=== PATIENT | female | born 1935 | race Caucasian/White ===

== ENCOUNTER 2017-08-30 14:38 | Observation (INO) ==
[2017-08-30] MEDS ORDERED: ACETAMINOPHEN 325 MG TABLET PO PRN (14:48)
[2017-08-30] MEDS ORDERED: ONDANSETRON 4 MG/2 ML VIAL IV PRN (14:48)
[2017-08-30] MEDS ORDERED: DOCUSATE SODIUM 100 MG CAPSULE PO PRN (14:48)
[2017-08-30 16:22] LABS: Basophils % 0.4 % (0.0-0.8); Eosinophils % 0.8 % (0.00-10.9); Hemoglobin 12.2 GM/DL (12.0-16.0); Immature Granulocytes % 0.2 %; Immature Granulocytes Absolute 0.01 #; Lymphocytes # 1.8 10*3/uL (1.4-4.0); Lymphocytes % 33.5 % (21.3-54.2); Mean Corpuscular Hemoglobin 32 PG (27-34); Mean Corpuscular Volume 95.6 FL (87-102); Mean Platelet Volume 9.9 FL (9.6-12.0); Monocytes # 0.5 10*3/uL (0.11-0.8); Monocytes % 9.3 % (1.7-12.7); Neutrophils % 55.8 % (38.7-73.9); Platelet Count 352 T/CUMM (130-400); Red Blood Count 3.87 MC/CUMM (3.8-5.5); Red Cell Distribution Width 11.9 % (9.3-17.3); White Blood Count 5.3 T/CUMM (4-12)
[2017-08-30 16:53] LABS: Albumin 3.5 G/DL (3.4-5.0); Bilirubin,Total 0.4 MG/DL (0.2-1.0); Calcium 9.2 MG/DL (8.5-10.1); Osmolality,Calculated 279.4 MOS/KG (273-304); Potassium 4.2 MMOL/L (3.5-5.1); Total Protein 6.7 G/DL (6.4-8.3)
[2017-08-30 16:58] LABS: Thyroid Stimulating Hormone 2.51 uIU/ml (0.358-3.74)
[2017-08-30 17:00] LABS: Apearance,Urine CLEAR (Clear); Bilirubin,Urine Negative (Negative); Blood, Urine Negative (Negative); Glucose,Urine (UA) Negative (Negative); Ketones,Urine Negative (Negative); Mucus,Urine Occasional /LPF (Occasional); Nitrite,Urine Negative (Negative); Protein,Urine Negative; RBC,Urine <1 /HPF (0-4); Squamous Epithelial Cell,Urine Occasional /HPF (0-10); Urine Color Yellow (Yellow); Urine Specific Gravity 1.008 (1.001-1.035); Urine Urobilinogen < 2.0 EU/DL (0.2-1.0); WBC,Urine 21 /HPF (0-6)
[2017-08-30] MEDS: SODIUM CHLORIDE 0.9% 1,000 ML IV SCH (17:11)
[2017-08-30] MEDS ORDERED: ENOXAPARIN 30 MG/0.3 ML SYRINGE SUBCUT SCH (21:00)
[2017-08-30] MEDS: PANTOPRAZOLE 40 MG TABLET PO SCH (21:00)
[2017-08-31] MEDS: SODIUM CHLORIDE 0.9% 1,000 ML IV SCH ×2 (04:00→13:49)
[2017-08-31 06:35] LABS: Basophils % 0.2 % (0.0-0.8); Eosinophils # 0.1 10*3/uL (0.0-0.87); Eosinophils % 1.1 % (0.00-10.9); Hematocrit 32.1 VOL% (35.7-47.0); Hemoglobin 10.7 GM/DL (12.0-16.0); Immature Granulocytes % 0.2 %; Immature Granulocytes Absolute 0.01 #; Lymphocytes # 1.5 10*3/uL (1.4-4.0); Lymphocytes % 35.1 % (21.3-54.2); Mean Corpuscular HGB Conc 33.3 GM/DL (32-36); Mean Corpuscular Hemoglobin 32 PG (27-34); Mean Corpuscular Volume 95.5 FL (87-102); Mean Platelet Volume 9.6 FL (9.6-12.0); Monocytes # 0.5 10*3/uL (0.11-0.8); Monocytes % 10.5 % (1.7-12.7); Neutrophils # 2.3 10*3/uL (1.4-7.4); Neutrophils % 52.9 % (38.7-73.9); Platelet Count 288 T/CUMM (130-400); Red Blood Count 3.36 MC/CUMM (3.8-5.5); Red Cell Distribution Width 11.8 % (9.3-17.3); White Blood Count 4.4 T/CUMM (4-12)
[2017-08-31 07:07] LABS: Albumin 3.1 G/DL (3.4-5.0); Bilirubin,Total 0.8 MG/DL (0.2-1.0); Calcium 8.5 MG/DL (8.5-10.1); Osmolality,Calculated 280.1 MOS/KG (273-304); Potassium 4.4 MMOL/L (3.5-5.1)
[2017-08-31] MEDS ORDERED: LIDOCAINE 2% 5 ML VIAL ONE (08:00)
[2017-08-31] MEDS ORDERED: PROPOFOL 200 MG/20 ML VIAL IV ONE (08:00)
[2017-08-31] MEDS ORDERED: PANTOPRAZOLE 40 MG TABLET PO SCH (09:00)
[2017-08-31] MEDS ORDERED: traMADol 50 MG TABLET PO PRN (09:13)
[2017-08-31] MEDS: PANTOPRAZOLE 40 MG TABLET PO SCH (09:29)
[2017-08-31 11:39] VITALS: BP 112/53
== END 2017-08-31 16:30 | disposition home or self-care (01) ==
LOC: N.2E
PROVIDERS: ADMIT Family Medicine; ATTEND Family Medicine

== ENCOUNTER 2017-12-15 10:02 | Observation (INO) ==
[2017-12-15 10:48] LABS: Basophils % 0.4 % (0.0-0.8); Eosinophils # 0.1 10*3/uL (0.0-0.87); Eosinophils % 1.3 % (0.00-10.9); Hemoglobin 12.5 GM/DL (12.0-16.0); Immature Granulocytes % 0.2 %; Immature Granulocytes Absolute 0.01 #; Lymphocytes # 1.5 10*3/uL (1.4-4.0); Lymphocytes % 27.3 % (21.3-54.2); Mean Corpuscular HGB Conc 32.9 GM/DL (32-36); Mean Corpuscular Hemoglobin 33 PG (27-34); Mean Corpuscular Volume 98.7 FL (87-102); Mean Platelet Volume 9.9 FL (9.6-12.0); Monocytes # 0.4 10*3/uL (0.11-0.8); Monocytes % 7.1 % (1.7-12.7); Neutrophils # 3.5 10*3/uL (1.4-7.4); Neutrophils % 63.7 % (38.7-73.9); Platelet Count 235 T/CUMM (130-400); Red Blood Count 3.85 MC/CUMM (3.8-5.5); Red Cell Distribution Width 12.2 % (9.3-17.3); White Blood Count 5.5 T/CUMM (4-12)
[2017-12-15 10:59] LABS: INR 0.9
[2017-12-15 11:08] LABS: Alanine Aminotransferase 16 U/L (13-56); Albumin 3.7 G/DL (3.4-5.0); Alkaline Phosphatase 82 U/L (45-117); Aspartate Amino Transferase 19 U/L (0-37); Bilirubin,Total < 0.39 MG/DL (0.2-1.0); Blood Urea Nitrogen 17 MG/DL (7-18); Calcium 9.1 MG/DL (8.5-10.1); Glucose 178 MG/DL (74-106); Osmolality,Calculated 278.8 MOS/KG (273-304); Potassium 4.2 MMOL/L (3.5-5.1); Sodium 137 MMOL/L (136-145); Total Protein 6.9 G/DL (6.4-8.3)
[2017-12-15] MEDS ORDERED: ACETAMINOPHEN 325 MG TABLET PO PRN (14:46)
[2017-12-15] MEDS ORDERED: ONDANSETRON 4 MG/2 ML VIAL IV PRN (14:46)
[2017-12-15] MEDS: POLYETHYLENE GLYCOL POWDER 17 GM PACK PO SCH (20:55)
[2017-12-15] MEDS: PANTOPRAZOLE 40 MG TABLET PO SCH (20:55)
[2017-12-15] MEDS ORDERED: DOCUSATE SODIUM 100 MG CAPSULE PO SCH (21:00)
[2017-12-15 22:44] LABS: Hematocrit 35.4 VOL% (35.7-47.0); Hemoglobin 11.9 GM/DL (12.0-16.0)
[2017-12-16 06:03] LABS: Basophils % 0.7 % (0.0-0.8); Eosinophils # 0.2 10*3/uL (0.0-0.87); Hematocrit 38.1 VOL% (35.7-47.0); Hemoglobin 12.5 GM/DL (12.0-16.0); Immature Granulocytes % 0.2 %; Immature Granulocytes Absolute 0.01 #; Lymphocytes # 1.6 10*3/uL (1.4-4.0); Lymphocytes % 37.1 % (21.3-54.2); Mean Corpuscular HGB Conc 32.8 GM/DL (32-36); Mean Corpuscular Hemoglobin 33 PG (27-34); Mean Corpuscular Volume 99.2 FL (87-102); Mean Platelet Volume 9.9 FL (9.6-12.0); Monocytes # 0.5 10*3/uL (0.11-0.8); Monocytes % 11.4 % (1.7-12.7); Neutrophils % 46.6 % (38.7-73.9); Platelet Count 223 T/CUMM (130-400); Red Blood Count 3.84 MC/CUMM (3.8-5.5); White Blood Count 4.2 T/CUMM (4-12)
[2017-12-16] MEDS ORDERED: PANTOPRAZOLE 40 MG TABLET PO SCH (09:00)
[2017-12-16] MEDS: POLYETHYLENE GLYCOL POWDER 17 GM PACK PO SCH ×2 (10:30→15:59)
[2017-12-16] MEDS: PANTOPRAZOLE 40 MG TABLET PO SCH ×2 (10:30→20:38)
[2017-12-16] MEDS: LISINOPRIL 20 MG TABLET PO SCH (11:40)
[2017-12-16] MEDS ORDERED: TUBERCULIN SKIN TEST 0.1 ML SYRINGE INTRADERM ONE (13:14)
[2017-12-16 14:03] LABS: Hematocrit 40.3 VOL% (35.7-47.0)
[2017-12-16] MEDS ORDERED: ESCITALOPRAM 10 MG TABLET PO SCH (21:00)
[2017-12-16] MEDS ORDERED: DONEPEZIL 5 MG TABLET PO SCH ×2 (21:00)
[2017-12-17 05:25] LABS: Basophils % 0.6 % (0.0-0.8); Eosinophils # 0.2 10*3/uL (0.0-0.87); Eosinophils % 4.4 % (0.00-10.9); Hematocrit 39.5 VOL% (35.7-47.0); Hemoglobin 12.9 GM/DL (12.0-16.0); Immature Granulocytes % 0.2 %; Immature Granulocytes Absolute 0.01 #; Lymphocytes # 2.1 10*3/uL (1.4-4.0); Lymphocytes % 42.9 % (21.3-54.2); Mean Corpuscular HGB Conc 32.7 GM/DL (32-36); Mean Corpuscular Hemoglobin 32 PG (27-34); Mean Corpuscular Volume 98.8 FL (87-102); Mean Platelet Volume 10.2 FL (9.6-12.0); Monocytes # 0.6 10*3/uL (0.11-0.8); Monocytes % 11.4 % (1.7-12.7); Neutrophils % 40.5 % (38.7-73.9); Platelet Count 238 T/CUMM (130-400)
[2017-12-17] MEDS ORDERED: LINACLOTIDE 145 MCG CAPSULE PO SCH (07:30)
[2017-12-17] MEDS: LISINOPRIL 20 MG TABLET PO SCH (08:44)
[2017-12-17] MEDS: PANTOPRAZOLE 40 MG TABLET PO SCH (08:47)
[2017-12-17] MEDS ORDERED: NON-FORMULARY MEDICATION (Omeprazole [Omeprazole] 40 MG) PO SCH (09:00)
[2017-12-17 13:18] VITALS: BP 146/65
== END 2017-12-17 15:15 | disposition home health service (06) ==
LOC: N.ED 10:02 → N.EDINP 10:02 → N.4E 14:39
PROVIDERS: ADMIT Family Medicine; ATTEND Family Medicine

== ENCOUNTER 2018-01-03 08:41 | Inpatient (IN) ==
[2018-01-03 09:09] LABS: Basophils % 0.4 % (0.0-0.8); Eosinophils # 0.1 10*3/uL (0.0-0.87); Eosinophils % 2.2 % (0.00-10.9); Hematocrit 35.4 VOL% (35.7-47.0); Hemoglobin 11.9 GM/DL (12.0-16.0); Immature Granulocytes % 0.2 %; Immature Granulocytes Absolute 0.01 #; Lymphocytes # 1.5 10*3/uL (1.4-4.0); Lymphocytes % 32.8 % (21.3-54.2); Mean Corpuscular HGB Conc 33.6 GM/DL (32-36); Mean Corpuscular Hemoglobin 33 PG (27-34); Mean Corpuscular Volume 97.5 FL (87-102); Mean Platelet Volume 9.6 FL (9.6-12.0); Monocytes # 0.4 10*3/uL (0.11-0.8); Monocytes % 8.4 % (1.7-12.7); Neutrophils # 2.5 10*3/uL (1.4-7.4); Platelet Count 232 T/CUMM (130-400); Red Blood Count 3.63 MC/CUMM (3.8-5.5); Red Cell Distribution Width 11.8 % (9.3-17.3); White Blood Count 4.5 T/CUMM (4-12)
[2018-01-03 09:23] LABS: Alanine Aminotransferase 16 U/L (13-56); Albumin 3.6 G/DL (3.4-5.0); Alkaline Phosphatase 72 U/L (45-117); Aspartate Amino Transferase 15 U/L (0-37); Bilirubin,Total < 0.39 MG/DL (0.2-1.0); Blood Urea Nitrogen 13 MG/DL (7-18); Calcium 8.8 MG/DL (8.5-10.1); Glucose 100 MG/DL (74-106); Osmolality,Calculated 274.7 MOS/KG (273-304); Potassium 4.3 MMOL/L (3.5-5.1); Sodium 138 MMOL/L (136-145)
[2018-01-03 09:29] LABS: PT Patient Result 10.1 SECS; Partial Thromboplastin Time 24.7 SECS (0-40)
[2018-01-03] MEDS ORDERED: ACETAMINOPHEN 325 MG TABLET PO PRN (13:44)
[2018-01-03] MEDS ORDERED: ONDANSETRON 4 MG/2 ML VIAL IV PRN (13:44)
[2018-01-03] MEDS: SODIUM CHLORIDE 0.9% 1,000 ML IV SCH (15:06)
[2018-01-03] MEDS: ESCITALOPRAM 10 MG TABLET PO SCH (21:31)
[2018-01-03] MEDS: DONEPEZIL 5 MG TABLET PO SCH (21:31)
[2018-01-03] MEDS: DOCUSATE SODIUM 100 MG CAPSULE PO SCH (21:31)
[2018-01-04] MEDS: SODIUM CHLORIDE 0.9% 1,000 ML IV SCH ×3 (01:15→22:58)
[2018-01-04] MEDS ORDERED: NON-FORMULARY MEDICATION (Linaclotide [Linzess] 72 MCG) PO SCH (07:30)
[2018-01-04] MEDS: PANTOPRAZOLE 40 MG TABLET PO SCH (08:58)
[2018-01-04] MEDS: DOCUSATE SODIUM 100 MG CAPSULE PO SCH ×2 (08:58→21:03)
[2018-01-04] MEDS: LISINOPRIL 20 MG TABLET PO SCH (08:58)
[2018-01-04] MEDS ORDERED: PANTOPRAZOLE 40 MG TABLET PO SCH (09:00)
[2018-01-04] MEDS: ESCITALOPRAM 10 MG TABLET PO SCH (21:03)
[2018-01-04] MEDS: DONEPEZIL 5 MG TABLET PO SCH (21:03)
[2018-01-05] MEDS: SODIUM CHLORIDE 0.9% 1,000 ML IV SCH ×2 (04:47→23:06)
[2018-01-05] MEDS: PANTOPRAZOLE 40 MG TABLET PO SCH (09:15)
[2018-01-05] MEDS: LISINOPRIL 20 MG TABLET PO SCH (09:15)
[2018-01-05] MEDS: DOCUSATE SODIUM 100 MG CAPSULE PO SCH ×2 (09:15→21:39)
[2018-01-05] MEDS ORDERED: LORazepam 2 MG/1 ML VIAL IV PRN (18:35)
[2018-01-05] MEDS: ESCITALOPRAM 10 MG TABLET PO SCH (21:39)
[2018-01-05] MEDS: DONEPEZIL 5 MG TABLET PO SCH (21:39)
[2018-01-06] MEDS: SODIUM CHLORIDE 0.9% 1,000 ML IV SCH (04:16)
[2018-01-06 08:01] VITALS: BP 143/73
[2018-01-06 08:49] LABS: Apearance,Urine CLEAR (Clear); Bilirubin,Urine Negative (Negative); Blood, Urine Negative (Negative); Glucose,Urine (UA) Negative (Negative); Hyaline Casts,Urine 2 /LPF (0-3); Ketones,Urine Negative (Negative); Mucus,Urine Occasional /LPF (Occasional); Nitrite,Urine Negative (Negative); Protein,Urine Negative; RBC,Urine 1 /HPF (0-4); Urine Color Straw (Yellow); Urine Specific Gravity 1.008 (1.001-1.035); Urine Urobilinogen < 2.0 EU/DL (0.2-1.0); WBC,Urine 2 /HPF (0-6)
[2018-01-06] MEDS: LISINOPRIL 20 MG TABLET PO SCH (09:31)
[2018-01-06] MEDS: DOCUSATE SODIUM 100 MG CAPSULE PO SCH (09:31)
[2018-01-06] MEDS: PANTOPRAZOLE 40 MG TABLET PO SCH (09:31)
== END 2018-01-06 10:56 | DRG 392 ==
LOC: N.ED 08:41 → N.EDINP 13:53 → N.2E 14:30
PROVIDERS: ADMIT Family Medicine; ATTEND Family Medicine

== ENCOUNTER 2019-03-03 09:47 | Inpatient (IN) ==
[2019-03-03] MEDS ORDERED: SODIUM CHLORIDE 0.9% 500 ML IV STA (10:12)
[2019-03-03 10:38] LABS: Basophils % 0.2 % (0.0-0.8); Eosinophils % 0.3 % (0.00-10.9); Hematocrit 31.1 VOL% (35.7-47.0); Hemoglobin 9.9 GM/DL (12.0-16.0); Immature Granulocytes % 0.5 %; Immature Granulocytes Absolute 0.05 #; Lymphocytes # 1.2 10*3/uL (1.4-4.0); Lymphocytes % 12.2 % (21.3-54.2); Mean Corpuscular HGB Conc 31.8 GM/DL (32-36); Mean Corpuscular Volume 98.1 FL (87-102); Mean Platelet Volume 9.4 FL (9.6-12.0); Monocytes % 9.3 % (1.7-12.7); Neutrophils % 77.5 % (38.7-73.9); Platelet Count 263 T/CUMM (130-400); Red Blood Count 3.17 MC/CUMM (3.8-5.5); Red Cell Distribution Width 12.2 % (9.3-17.3); White Blood Count 9.6 T/CUMM (4-12)
[2019-03-03 10:44] LABS: Amorphous Crystals,Urine Occasional /HPF (Few); Apearance,Urine CLEAR (Clear); Bilirubin,Urine Negative (Negative); Blood, Urine Negative (Negative); Glucose,Urine (UA) Negative (Negative); Ketones,Urine Negative (Negative); Mucus,Urine Occasional /LPF (Occasional); Nitrite,Urine Negative (Negative); Protein,Urine Negative; RBC,Urine <1 /HPF (0-4); Urine Color Yellow (Yellow); Urine Specific Gravity 1.021 (1.001-1.035); Urine Urobilinogen < 2.0 EU/DL (0.2-1.0); WBC,Urine <1 /HPF (0-6)
[2019-03-03 10:48] LABS: PT Patient Result 10.7 SECS; Partial Thromboplastin Time 28.4 SECS (0-40)
[2019-03-03 11:00] LABS: Alanine Aminotransferase 11 U/L (13-56); Albumin 2.4 G/DL (3.4-5.0); Alkaline Phosphatase 73 U/L (45-117); Aspartate Amino Transferase 17 U/L (0-37); Blood Urea Nitrogen 21 MG/DL (7-18); Calcium 8.6 MG/DL (8.5-10.1); Glucose 118 MG/DL (74-106); Osmolality,Calculated 280.5 MOS/KG (273-304); Total Protein 5.8 G/DL (6.4-8.3); Troponin I < 0.015 NG/ML (0.00-0.045)
[2019-03-03] MEDS ORDERED: ALBUTEROL/IPRATROPIUM 3 ML NEB RESP TX STA (11:22)
[2019-03-03] MEDS ORDERED: MEROPENEM 1,000 MG in SODIUM CHLORIDE 0.9% 100 ML IV STA (11:22)
[2019-03-03] MEDS ORDERED: SODIUM CHLORIDE 0.9% 100 ML IV ONE (11:55)
[2019-03-03] MEDS ORDERED: MEROPENEM 1,000 MG VIAL IV ONE (11:55)
[2019-03-03] MEDS ORDERED: ONDANSETRON 4 MG/2 ML VIAL IV PRN (12:17)
[2019-03-03] MEDS: ALBUTEROL/IPRATROPIUM 3 ML NEB RESP TX SCH ×2 (13:30→19:18)
[2019-03-03] MEDS: ZALEPLON 5 MG CAPSULE PO SCH (20:48)
[2019-03-03] MEDS: LORazepam 0.5 MG TABLET PO SCH (20:48)
[2019-03-03] MEDS: DONEPEZIL 10 MG TABLET PO SCH (20:48)
[2019-03-03] MEDS: traZODone 50 MG TABLET PO SCH (20:49)
[2019-03-03] MEDS: MEROPENEM 1,000 MG in SODIUM CHLORIDE 0.9% 100 ML IV SCH (20:49)
[2019-03-04] MEDS: ALBUTEROL/IPRATROPIUM 3 ML NEB RESP TX SCH ×4 (00:18→20:55)
[2019-03-04] MEDS: MEROPENEM 1,000 MG in SODIUM CHLORIDE 0.9% 100 ML IV SCH ×3 (04:54→23:28)
[2019-03-04] MEDS: NON-FORMULARY MEDICATION (Linaclotide [Linzess] 72 MCG) PO SCH (09:01)
[2019-03-04] MEDS: LINZESS PO SCH (09:01)
[2019-03-04] MEDS: NON-FORMULARY MEDICATION (Dextromethorphan-Quinidine [Nuedexta] 1 CAPSULE) PO SCH (09:02)
[2019-03-04] MEDS: PANTOPRAZOLE 40 MG TABLET PO SCH (09:05)
[2019-03-04] MEDS: MULTIVITAMIN (CENTRUM) TABLET PO SCH (09:05)
[2019-03-04] MEDS: SERTRALINE 25 MG TABLET PO SCH (09:05)
[2019-03-04] MEDS: LISINOPRIL 20 MG TABLET PO SCH (09:05)
[2019-03-04] MEDS: LORazepam 0.5 MG TABLET PO SCH ×2 (09:05→22:00)
[2019-03-04] MEDS ORDERED: LORazepam 2 MG/1 ML VIAL IV ONE (10:01)
[2019-03-04] MEDS: LORazepam 2 MG/1 ML VIAL IV PRN ×2 (11:18→17:38)
[2019-03-04] MEDS ORDERED: ENOXAPARIN 40 MG/0.4 ML SYRINGE SUBCUT SCH (11:30)
[2019-03-04] MEDS: VANCOMYCIN INJ 1,000 MG in SODIUM CHLORIDE 0.9% 250 ML IV SCH (18:30)
[2019-03-04] MEDS: traZODone 50 MG TABLET PO SCH (21:59)
[2019-03-04] MEDS: ENOXAPARIN 30 MG/0.3 ML SYRINGE SUBCUT SCH (22:00)
[2019-03-04] MEDS: DONEPEZIL 10 MG TABLET PO SCH (22:00)
[2019-03-04] MEDS: ZALEPLON 5 MG CAPSULE PO SCH (22:00)
[2019-03-04] MEDS: ACETAMINOPHEN 500 MG TABLET PO PRN (23:27)
[2019-03-05] MEDS: ALBUTEROL/IPRATROPIUM 3 ML NEB RESP TX SCH ×4 (00:59→19:54)
[2019-03-05] MEDS: LORazepam 2 MG/1 ML VIAL IV PRN ×2 (02:14→21:00)
[2019-03-05] MEDS: MEROPENEM 1,000 MG in SODIUM CHLORIDE 0.9% 100 ML IV SCH ×3 (04:47→20:58)
[2019-03-05] MEDS: NON-FORMULARY MEDICATION (Linaclotide [Linzess] 72 MCG) PO SCH (08:02)
[2019-03-05] MEDS: NON-FORMULARY MEDICATION (Dextromethorphan-Quinidine [Nuedexta] 1 CAPSULE) PO SCH (08:02)
[2019-03-05] MEDS: LINZESS PO SCH (08:02)
[2019-03-05] MEDS: LORazepam 0.5 MG TABLET PO SCH ×2 (09:05→21:52)
[2019-03-05] MEDS: SERTRALINE 25 MG TABLET PO SCH (09:05)
[2019-03-05] MEDS: LISINOPRIL 20 MG TABLET PO SCH (09:05)
[2019-03-05] MEDS: MULTIVITAMIN (CENTRUM) TABLET PO SCH (09:05)
[2019-03-05] MEDS: PANTOPRAZOLE 40 MG TABLET PO SCH (09:05)
[2019-03-05] MEDS: VANCOMYCIN INJ 1,000 MG in SODIUM CHLORIDE 0.9% 250 ML IV SCH (18:09)
[2019-03-05] MEDS: DONEPEZIL 10 MG TABLET PO SCH (20:59)
[2019-03-05] MEDS: traZODone 50 MG TABLET PO SCH (20:59)
[2019-03-05] MEDS: ZALEPLON 5 MG CAPSULE PO SCH (20:59)
[2019-03-05] MEDS: ENOXAPARIN 30 MG/0.3 ML SYRINGE SUBCUT SCH (21:04)
[2019-03-06] MEDS: ALBUTEROL/IPRATROPIUM 3 ML NEB RESP TX SCH ×4 (01:13→19:40)
[2019-03-06] MEDS: MEROPENEM 1,000 MG in SODIUM CHLORIDE 0.9% 100 ML IV SCH ×2 (04:20→12:03)
[2019-03-06] MEDS: LINZESS PO SCH (10:50)
[2019-03-06] MEDS: NON-FORMULARY MEDICATION (Linaclotide [Linzess] 72 MCG) PO SCH (10:50)
[2019-03-06] MEDS: NON-FORMULARY MEDICATION (Dextromethorphan-Quinidine [Nuedexta] 1 CAPSULE) PO SCH (10:50)
[2019-03-06] MEDS: LISINOPRIL 20 MG TABLET PO SCH (10:52)
[2019-03-06] MEDS: PANTOPRAZOLE 40 MG TABLET PO SCH (10:52)
[2019-03-06] MEDS: SERTRALINE 25 MG TABLET PO SCH (10:52)
[2019-03-06] MEDS: MULTIVITAMIN (CENTRUM) TABLET PO SCH (10:52)
[2019-03-06] MEDS: LORazepam 0.5 MG TABLET PO SCH ×2 (10:52→20:07)
[2019-03-06 11:43] LABS: Basophils % 0.2 % (0.0-0.8); Eosinophils # 0.1 10*3/uL (0.0-0.87); Eosinophils % 1.2 % (0.00-10.9); Hematocrit 33.2 VOL% (35.7-47.0); Hemoglobin 10.2 GM/DL (12.0-16.0); Immature Granulocytes % 0.2 %; Immature Granulocytes Absolute 0.02 #; Lymphocytes # 0.8 10*3/uL (1.4-4.0); Lymphocytes % 10.1 % (21.3-54.2); Mean Corpuscular HGB Conc 30.7 GM/DL (32-36); Mean Corpuscular Volume 98.5 FL (87-102); Mean Platelet Volume 9.7 FL (9.6-12.0); Monocytes % 7.8 % (1.7-12.7); Neutrophils % 80.5 % (38.7-73.9); Platelet Count 301 T/CUMM (130-400); Red Blood Count 3.37 MC/CUMM (3.8-5.5)
[2019-03-06 11:51] LABS: Total Protein,Body Fluid 3.2 G/DL
[2019-03-06] MEDS: ACETAMINOPHEN 500 MG TABLET PO PRN (12:01)
[2019-03-06 12:03] LABS: Albumin 2.2 G/DL (3.4-5.0); Bilirubin,Total 0.6 MG/DL (0.2-1.0); Calcium 8.8 MG/DL (8.5-10.1); Osmolality,Calculated 274.5 MOS/KG (273-304); Total Protein 6.1 G/DL (6.4-8.3)
[2019-03-06] MEDS: CLINDAMYCIN INJ 900 MG in PREMIX 1 EACH IV SCH (17:13)
[2019-03-06] MEDS: VANCOMYCIN INJ 1,000 MG in SODIUM CHLORIDE 0.9% 250 ML IV SCH (20:02)
[2019-03-06] MEDS: ENOXAPARIN 30 MG/0.3 ML SYRINGE SUBCUT SCH (20:04)
[2019-03-06] MEDS: DONEPEZIL 10 MG TABLET PO SCH (20:07)
[2019-03-06] MEDS: ZALEPLON 5 MG CAPSULE PO SCH (20:08)
[2019-03-06] MEDS: traZODone 50 MG TABLET PO SCH (20:08)
[2019-03-06 21:10] LABS: Lymphocytes,Pleural Fluid 65 %; Monocytes,Pleural Fluid 13 %; Neutrophils,Pleural Fluid 22 %; RBC,Pleural Fluid 8679 T/CUMM
[2019-03-07] MEDS: CLINDAMYCIN INJ 900 MG in PREMIX 1 EACH IV SCH ×3 (00:11→16:26)
[2019-03-07] MEDS: ALBUTEROL/IPRATROPIUM 3 ML NEB RESP TX SCH ×4 (01:15→18:40)
[2019-03-07 04:56] LABS: Basophils % 0.4 % (0.0-0.8); Eosinophils # 0.2 10*3/uL (0.0-0.87); Eosinophils % 2.1 % (0.00-10.9); Hematocrit 30.1 VOL% (35.7-47.0); Hemoglobin 9.4 GM/DL (12.0-16.0); Immature Granulocytes % 0.1 %; Immature Granulocytes Absolute 0.01 #; Lymphocytes % 13.6 % (21.3-54.2); Mean Corpuscular HGB Conc 31.2 GM/DL (32-36); Mean Corpuscular Volume 98.4 FL (87-102); Mean Platelet Volume 9.6 FL (9.6-12.0); Monocytes % 8.5 % (1.7-12.7); Neutrophils % 75.3 % (38.7-73.9); Platelet Count 272 T/CUMM (130-400); Red Blood Count 3.06 MC/CUMM (3.8-5.5); Red Cell Distribution Width 11.9 % (9.3-17.3); White Blood Count 7.5 T/CUMM (4-12)
[2019-03-07 05:13] LABS: Calcium 8.6 MG/DL (8.5-10.1); Osmolality,Calculated 279.4 MOS/KG (273-304)
[2019-03-07] MEDS: ACETAMINOPHEN 500 MG TABLET PO PRN (08:14)
[2019-03-07] MEDS: LISINOPRIL 20 MG TABLET PO SCH (08:14)
[2019-03-07] MEDS: MULTIVITAMIN (CENTRUM) TABLET PO SCH (08:14)
[2019-03-07] MEDS: SERTRALINE 25 MG TABLET PO SCH (08:14)
[2019-03-07] MEDS: LORazepam 0.5 MG TABLET PO SCH ×2 (08:14→20:09)
[2019-03-07] MEDS: PANTOPRAZOLE 40 MG TABLET PO SCH (08:14)
[2019-03-07] MEDS: NON-FORMULARY MEDICATION (Dextromethorphan-Quinidine [Nuedexta] 1 CAPSULE) PO SCH (08:22)
[2019-03-07] MEDS: NON-FORMULARY MEDICATION (Linaclotide [Linzess] 72 MCG) PO SCH (08:22)
[2019-03-07] MEDS: LINZESS PO SCH (08:22)
[2019-03-07] MEDS: LORazepam 2 MG/1 ML VIAL IV PRN (16:31)
[2019-03-07] MEDS: VANCOMYCIN INJ 1,000 MG in SODIUM CHLORIDE 0.9% 250 ML IV SCH (18:18)
[2019-03-07] MEDS: traZODone 50 MG TABLET PO SCH (20:09)
[2019-03-07] MEDS: DONEPEZIL 10 MG TABLET PO SCH (20:09)
[2019-03-07] MEDS: ENOXAPARIN 30 MG/0.3 ML SYRINGE SUBCUT SCH (20:10)
[2019-03-07] MEDS: ZALEPLON 5 MG CAPSULE PO SCH (20:10)
[2019-03-08] MEDS: CLINDAMYCIN INJ 900 MG in PREMIX 1 EACH IV SCH ×2 (00:21→08:36)
[2019-03-08] MEDS: ALBUTEROL/IPRATROPIUM 3 ML NEB RESP TX SCH ×2 (01:06→06:58)
[2019-03-08] MEDS: LORazepam 2 MG/1 ML VIAL IV PRN ×2 (02:18→11:31)
[2019-03-08] MEDS: LINZESS PO SCH (07:33)
[2019-03-08] MEDS: NON-FORMULARY MEDICATION (Linaclotide [Linzess] 72 MCG) PO SCH (07:33)
[2019-03-08] MEDS: LORazepam 0.5 MG TABLET PO SCH (08:36)
[2019-03-08] MEDS: LISINOPRIL 20 MG TABLET PO SCH (08:36)
[2019-03-08] MEDS: SERTRALINE 25 MG TABLET PO SCH (08:36)
[2019-03-08] MEDS: MULTIVITAMIN (CENTRUM) TABLET PO SCH (08:36)
[2019-03-08] MEDS: NON-FORMULARY MEDICATION (Dextromethorphan-Quinidine [Nuedexta] 1 CAPSULE) PO SCH (08:36)
[2019-03-08] MEDS: PANTOPRAZOLE 40 MG TABLET PO SCH (08:36)
[2019-03-08 11:43] VITALS: BP 92/48
== END 2019-03-08 14:08 | DRG 178 ==
LOC: EDBD → EDUNIT# → N.ED 09:47 → N.EDINP 12:16 → N.4E 12:54
PROVIDERS: ADMIT Family Medicine; ATTEND Family Medicine
PROC: IRTHORA (2019-03-06 10:00)

== ENCOUNTER 2020-07-11 17:02 | Observation (INO) ==
[2020-07-11 17:23] LABS: Basophils % 0.3 % (0.0-0.8); Eosinophils % 0.1 % (0.00-10.9); Hematocrit 33.5 VOL% (35.7-47.0); Immature Granulocytes % 0.5 %; Immature Granulocytes Absolute 0.04 #; Lymphocytes # 0.8 10*3/uL (1.4-4.0); Lymphocytes % 9.4 % (21.3-54.2); Mean Corpuscular HGB Conc 32.8 GM/DL (32-36); Mean Corpuscular Volume 96.8 FL (87-102); Mean Platelet Volume 9.3 FL (9.6-12.0); Monocytes % 4.9 % (1.7-12.7); Neutrophils % 84.8 % (38.7-73.9); Platelet Count 228 T/CUMM (130-400); Red Blood Count 3.46 MC/CUMM (3.8-5.5); Red Cell Distribution Width 12.5 % (9.3-17.3)
[2020-07-11] MEDS ORDERED: SODIUM CHLORIDE 0.9% 1,000 ML IV STA (17:42)
[2020-07-11 17:52] LABS: Alanine Aminotransferase 18 U/L (13-56); Albumin 2.8 G/DL (3.4-5.0); Alkaline Phosphatase 70 U/L (45-117); Aspartate Amino Transferase 17 U/L (0-37); Bilirubin,Total < 0.39 MG/DL (0.2-1.0); Blood Urea Nitrogen 33 MG/DL (7-18); Calcium 7.9 MG/DL (8.5-10.1); Estimated Glom Filtration Rate 15 ML/MIN; Glucose 130 MG/DL (74-106); Osmolality,Calculated 291.1 MOS/KG (273-304); Total Protein 5.5 G/DL (6.4-8.3)
[2020-07-11 18:53] LABS: Bacteria,Urine Occasional /HPF (Few); Blood, Urine Negative (Negative); Glucose,Urine (UA) Negative (Negative); Hyaline Casts,Urine 4 /LPF (0-3); Ketones,Urine Negative (Negative); Mucus,Urine Occasional /LPF (Occasional); Nitrite,Urine Negative (Negative); Protein,Urine Negative; RBC,Urine 1 /HPF (0-4); Urine Appearance CLOUDY (Clear); Urine Color Amber (Yellow); Urine Specific Gravity 1.024 (1.001-1.035); Urine Urobilinogen < 2.0 EU/DL (0.2-1.0); WBC,Urine 2 /HPF (0-6)
[2020-07-11 18:55] LABS: Bilirubin,Urine Small mg/dL (Negative)
[2020-07-11] MEDS ORDERED: ONDANSETRON 4 MG/2 ML VIAL IV PRN (19:10)
[2020-07-11] MEDS ORDERED: ACETAMINOPHEN 325 MG TABLET PO PRN (19:10)
[2020-07-11] MEDS ORDERED: LORazepam 2 MG/1 ML VIAL IV STA (19:26)
[2020-07-11] MEDS ORDERED: SODIUM CHLORIDE 0.9% 1,000 ML IV SCH (19:30)
[2020-07-11] MEDS ORDERED: ZALEPLON 5 MG CAPSULE PO SCH (22:30)
[2020-07-11] MEDS ORDERED: DONEPEZIL 10 MG TABLET PO SCH (22:30)
[2020-07-11] MEDS ORDERED: traZODone 50 MG TABLET PO SCH (22:30)
[2020-07-11] MEDS ORDERED: HALOPERIDOL 5 MG/ML AMP IM PRN (22:37)
[2020-07-11] MEDS: LORazepam 0.5 MG TABLET PO SCH (23:17)
[2020-07-12 06:26] LABS: Basophils % 0.3 % (0.0-0.8); Eosinophils # 0.1 10*3/uL (0.0-0.87); Eosinophils % 1.3 % (0.00-10.9); Hematocrit 30.9 VOL% (35.7-47.0); Hemoglobin 9.9 GM/DL (12.0-16.0); Immature Granulocytes % 0.7 %; Immature Granulocytes Absolute 0.04 #; Lymphocytes # 1.4 10*3/uL (1.4-4.0); Lymphocytes % 22.1 % (21.3-54.2); Mean Corpuscular Volume 98.4 FL (87-102); Mean Platelet Volume 9.5 FL (9.6-12.0); Monocytes % 7.5 % (1.7-12.7); Neutrophils % 68.1 % (38.7-73.9); Platelet Count 215 T/CUMM (130-400); Red Blood Count 3.14 MC/CUMM (3.8-5.5); Red Cell Distribution Width 12.5 % (9.3-17.3); White Blood Count 6.1 T/CUMM (4-12)
[2020-07-12 06:53] LABS: Alanine Aminotransferase 18 U/L (13-56); Albumin 2.7 G/DL (3.4-5.0); Alkaline Phosphatase 66 U/L (45-117); Aspartate Amino Transferase 18 U/L (0-37); Bilirubin,Total < 0.39 MG/DL (0.2-1.0); Blood Urea Nitrogen 26 MG/DL (7-18); Calcium 8.2 MG/DL (8.5-10.1); Estimated Glom Filtration Rate 29 ML/MIN; Glucose 86 MG/DL (74-106); Total Protein 5.6 G/DL (6.4-8.3)
[2020-07-12 08:17] VITALS: BP 110/44
[2020-07-12] MEDS: LORazepam 0.5 MG TABLET PO SCH (08:17)
[2020-07-12] MEDS ORDERED: SERTRALINE 50 MG TABLET PO SCH (09:00)
[2020-07-12] MEDS ORDERED: lisinopriL 10 MG TABLET PO SCH (09:00)
[2020-07-12] MEDS ORDERED: MULTIVITAMIN (CENTRUM) TABLET PO SCH (09:00)
[2020-07-12] MEDS ORDERED: PANTOPRAZOLE 40 MG VIAL IV SCH (09:00)
[2020-07-12] MEDS ORDERED: Dextromethorphan-Quinidine [Nuedexta] 20-10 mg PO SCH (09:00)
[2020-07-12] MEDS ORDERED: Linaclotide [Linzess] 72 MCG PO SCH (09:00)
== END 2020-07-12 11:13 ==
LOC: EDUNIT# → EDBD → N.EDINP 17:02 → N.ED 17:02 → N.5E 19:44
PROVIDERS: ADMIT Family Medicine; ATTEND Family Medicine